=== PATIENT | male | born 1985 | race Hispanic/Latino ===

== ENCOUNTER 2018-06-19 23:41 | Emergency (ER) | payer BC ==
[~2018-06-19] VITALS: Ht 182.9 cm; Wt 145.1 kg
--- NOTE | 2018-06-20 01:12 | Diagnostic Imaging Report ---
KNEE RIGHT THREE VIEWS Comparison: None Clinical history: Patellar dislocation, knee buckle to side at batting cages Findings: No fracture or dislocation. Impression: No acute bony abnormality Signed by: Dr Nenita Chaudhry MD on 06/20/2018 1:10 AM
[2018-06-20] MEDS ORDERED: HYDROCODONE/APAP 7.5MG-325MG 1 EA TAB PO ONE (01:30)
== END 2018-06-20 01:55 | disposition home or self-care (01) ==
LOC: ER 23:41
DX: S83.521A Sprain of posterior cruciate ligament of right knee, initial encounter (principal); S83.004A Unspecified dislocation of right patella, initial encounter; X50.1XXA Overexertion from prolonged static or awkward postures, initial encounter; Y93.64 Activity, baseball; Y92.320 Baseball field as the place of occurrence of the external cause
CPT/HCPCS: 99283

== ENCOUNTER → 2018-07-02 | Outpatient (CLI) | payer BC ==
--- NOTE | 2018-07-02 10:21 | Diagnostic Imaging Report ---
Right knee MRI without contrast. History: Knee pain. Trauma. ACL tear. Decreased range of motion. Comparison: Radiographs 06/20/2018. Technique: Multiplanar multi-sequence MRI of the knee without contrast. Findings: Medial compartment: No meniscal tear, cartilage abnormality, or MCL tear. Lateral compartment: No meniscal tear or cartilage abnormality. The LCL complex is normal. Intercondylar notch: The ACL and PCL are intact. Patellofemoral compartment: There is tearing of the medial patellar retinacular tissues. The patella is slightly laterally subluxed. There is a bone contusion with bone marrow edema at the medial patellar surface and a bone contusion with bone marrow edema at the lateral femoral condyle. The findings are consistent with prior lateral patellar dislocation with relocation. The articular cartilage surfaces are slightly thinned along the medial patellar facet. Extensor mechanism: The quadriceps and patellar tendons are normal. Other findings: There is a joint effusion and synovitis. There is no cortical, subluxation or avascular necrosis. IMPRESSION: Tearing of the medial patellar retinacular tissues. The patella is slightly laterally subluxed. There is a bone contusion with bone marrow edema at the medial patellar surface and a bone contusion with bone marrow edema at the lateral femoral condyle. The findings are consistent with prior lateral patellar dislocation with relocation. The articular cartilage surfaces are slightly thinned along the medial patellar facet. Signed by: Dr. Zev Le M.D. on 07/02/2018 10:18 AM
== END ==
LOC: MRI 08:49
PROVIDERS: ATTEND Orthopaedic Surgery
DX: M25.561 Pain in right knee (principal); M25.461 Effusion, right knee; M65.861 Other synovitis and tenosynovitis, right lower leg